=== PATIENT | male | born 1985 | race Caucasian/White ===

== ENCOUNTER 2017-08-05 14:23 | Emergency (ER) | payer OTHER, SELFPAY ==
--- NOTE | 2017-08-05 14:30 | DI.RAD.S_ITS ---
PROCEDURE: XR HAND LT MIN 3V INDICATIONS: cut off pinky with saw TECHNIQUE: 3 views of the hand(s) acquired. COMPARISON: None. FINDINGS: Bones: Partial traumatic amputation involving the distal phalanx of the 5th digit is evident. No definite involvement of the distal interphalangeal joint is evident. No radiopaque foreign bodies are evident at this site. There appears to be flattening involving the ulnar margin of the tuft of the distal phalanx of the 4th digit. No displaced fractures or dislocations are identified involving the osseous structures of the hand. No significant degenerative changes are appreciated. Soft tissues: No suspicious soft tissue calcifications. Soft tissue swelling and probable laceration is evident involving the distal phalanx of the 4th digit. No unexpected radiopaque foreign bodies are evident. There is also laceration involving the distal phalanx of the 5th digit. IMPRESSION: 1. Traumatic amputation involving the majority of the distal phalanx of the 5th digit. 2. Soft tissue injury/laceration involving the tip of the 4th digit with an associated injury involving the tuft of the distal phalanx of the 4th digit. 3. No radiopaque foreign bodies. Dictated by: Asaf Verduzco M.D. on 08/05/2017 at 13:41 Approved by: Asaf Verduzco M.D. on 08/05/2017 at 13:54
--- NOTE | 2017-08-05 14:33 | ED_ITS ---
HPI - Extremity Injury (Upper) General Chief Complaint: Wound/Laceration Stated Complaint: ACCIDENT,FINGER AMPUTATED Time Seen by Provider: 08/05/17 14:30 Source: patient Mode of arrival: ambulatory Limitations: no limitations History of Present Illness HPI narrative: Patient is a 32-year-old male who presents with a left PE amputation. He was working with a table saw when he cut the distal end of his finger off. He is brought the finger with them in a cup of water. Of he denies numbness or tingling. Tetanus is up-to-date of bleeding is controlled complaint: injury to: left Onset (ago): minute(s) (15) Related Data Previous Rx's Medication Instructions Recorded cephalexin 500 mg PO Q8H #21 tab 08/05/17 hydrocodone-acetaminophen [[place]] 1 tab PO Q6H PRN #14 tab 08/05/17 Review of Systems Review of Systems GENERAL: Denies chills,fever HEENT: Denies throat pain RESPIRATORY: Denies dyspnea, cough, wheezing CARDIOVASCULAR: Denies chest pain, palpitations GASTROINTESTINAL: Denies nausea, vomiting MUSCULOSKELETAL: As per HPI SKIN: See HPI NEUROLOGIC: Denies weakness, dizziness, headache, numbness 8 point review of systems is negative except for those stated above and HPI All systems reviewed & are unremarkable except as noted in HPI and below [facility] Surgical History Status post hernia repair Exam Initial Vital Signs Initial Vital Signs: Vital Signs Temperature 97.9 F 08/05/17 14:37 Pulse Rate 110 H 08/05/17 14:37 Respiratory Rate 19 08/05/17 14:37 Blood Pressure 188/107 H 08/05/17 14:37 Pulse Oximetry 99 08/05/17 14:37 GENERAL: Well-appearing, well-nourished and in no acute distress. CARDIOVASCULAR: peripheral pulses in tact, cap refill <2 sec RESPIRATORY: No respiratory distress, speaks in full sentences without difficulty EXTREMITIES: Peripheral pulses intact left hand sensation of radial median and ulnar nerve intact. A flexion extension abduction and abduction present and all fingers. Obvious missing distal portion of left 5th finger. NEUROLOGICAL: Cranial nerves II through XII grossly intact. Normal gait and speech. SKIN: Warm, dry, no petechiae, no rashes or lesions. Extrem Hand L/R Back: 2 1. amputated 2. laceration with nail bed involvement. Course Orders Ordered: Discontinued Medications Cefazolin Sodium/Dextrose (Ancef) 2 gm in 100 mls @ 200 mls/hr IV NOW ONE Stop: 08/05/17 15:00 Last Infusion: 08/05/17 15:10 Dose: 0 mls/hr Admin: 08/05/17 14:36 Dose: 200 mls/hr Morphine Sulfate (Morphine Sulfate) 4 mg IV NOW ONE Stop: 08/05/17 14:32 Last Admin: 08/05/17 14:37 Dose: Morphine Sulfate (Morphine) 4 mg IV NOW ONE Stop: 08/05/17 14:38 Last Admin: 08/05/17 14:38 Dose: 4 mg Reevaluation(s) Reevaluation #1: Dr. Caban has been consulted and is at bedside for repair. Vital Signs - 8 hr 08/05/17 14:37 08/05/17 15:13 Temperature 97.9 F Pulse Rate 110 H Respiratory Rate 19 Blood Pressure 188/107 H Blood Pressure [Left Arm] 150/99 H Pulse Oximetry 99 MDM - Extremity Injury (Upper) Imaging Data hand x ray left: Radiologist's impression: PROCEDURE: XR HAND LT MIN 3V INDICATIONS: cut off pinky with saw TECHNIQUE: 3 views of the hand(s) acquired. COMPARISON: None. FINDINGS: Bones: Partial traumatic amputation involving the distal phalanx of the 5th digit is evident. No definite involvement of the distal interphalangeal joint is evident. No radiopaque foreign bodies are evident at this site. There appears to be flattening involving the ulnar margin of the tuft of the distal phalanx of the 4th digit. No displaced fractures or dislocations are identified involving the osseous structures of the hand. No significant degenerative changes are appreciated. Soft tissues: No suspicious soft tissue calcifications. Soft tissue swelling and probable laceration is evident involving the distal phalanx of the 4th digit. No unexpected radiopaque foreign bodies are evident. There is also laceration involving the distal phalanx of the 5th digit. IMPRESSION: 1. Traumatic amputation involving the majority of the distal phalanx of the 5th digit. 2. Soft tissue injury/laceration involving the tip of the 4th digit with an associated injury involving the tuft of the distal phalanx of the 4th digit. 3. No radiopaque foreign bodies. Dictated by: Asaf Verduzco M.D. on 08/05/2017 at 13:41 Discharge Plan Departure Patient Disposition: Home, Self-Care Clinical Impression: Amputation of finger of left hand Discharge Date/Time: 08/05/17 17:21 Interventions: ED Discharge Assessment Last Done: 08/05/17 17:16 Instructions: DI for Traumatic Amputation Activity Restrictions/Additional Instructions: *You have been diagnosed with distal left 5th finger amputation *What to do: Follow Orthopedics instructions. *Continue to take medications as directed Keflex 500 mg 3 times a day *Follow up with your primary care provider in 2-3 days, follow up with Dr. Dietz in clinic next week *Return to ER if you should have increasing pain, redness or any new, worsening or concerning symptoms Prescriptions: New cephalexin 500 mg tablet 500 mg PO Q8H Qty: 21 RF: 0 hydrocodone-acetaminophen [[place]] 5-325 mg tablet 1 tab PO Q6H PRN (Reason: pain) Qty: 14 RF: 0 Referrals: Jewels Caban MD [Physician] - Lin Nathan ARNP [Primary Care Provider] -
[2017-08-05] MEDS: CEFAZOLIN 2 GM/100 ML FROZ.PIGGY IV (14:36)
[2017-08-05 14:37] VITALS: BP 188/107; PULSE 110; RESP 19; TEMP 36.6; O2SAT 99
[2017-08-05] MEDS: MORPHINE 4 MG/ML INJ IV (14:38)
--- NOTE | 2017-08-05 14:40 | PC.NURSE ---
Pts finger wrapped in saline soaked gauze,finger tip removed from water and placed in normal saline
[2017-08-05 15:13] VITALS: BP 150/99
--- NOTE | 2017-08-05 17:12 | PC.NURSE ---
Assisted orthopedic surgeon with procedure. Pt awake for procedure. Alert and oriented. Reports pain tolerable during process. Ensured patients vitals stayed stable.
[2017-08-05 17:16] VITALS: BP 141/97; PULSE 85; RESP 15; O2SAT 98
--- NOTE | 2017-08-05 17:34 | P.CONS_ITS ---
History of Present Illness Date Patient Seen: 08/05/17 Time Patient Seen: 17:10 Chief complaint: ACCIDENT,FINGER AMPUTATED Reason for consult: Saw injury at work: Traumatic partial amputation sf,rf. 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 He was at work today when he was using a saw and had an injury to his left small finger and ring finger. He had a traumatic partial amputation of the distal phalanx of the small finger. He brought the amputated tissue with him today in cold water. The ring finger injury was mostly a oblique laceration. He last ate at 12:30 p.m. he does not smoke but occasionally chews tobacco. He does not take any medications or have any allergies to medications. He has no other medical problems. This is an L and I injury. Location: Left small finger, left ring finger Quality: Throbbing, bleeding, pain, ache Severity: Moderate Duration: Several hours Time: Constant Context: Table saw injury, acute onset Factors that make it better or worse: Pain medication helps, ice PFSH Surgical History Status post hernia repair Comment: Does not smoke. Occasionally chews tobacco Denies other medical problems or medications Meds Home Medications Medication Instructions Recorded Confirmed Type cephalexin 500 mg PO Q8H #21 tab 08/05/17 Rx hydrocodone-acetaminophen [[place]] 1 tab PO Q6H PRN #14 tab 08/05/17 Rx Review of Systems Review of Systems All systems reviewed & are unremarkable except as noted in HPI and below Exam Vital Signs (past 8 hours): Vital Signs - 8 hr 3 08/05/17 14:37 08/05/17 15:13 Temperature 97.9 F Pulse Rate 110 H Respiratory Rate 19 Blood Pressure 188/107 H Blood Pressure [Left Arm] 150/99 H Pulse Oximetry 99 Pulse Oximetry 99 Oxygen Delivery Method Room Air Narrative Exam Narrative: Patient is a 32-year-old male who is alert and oriented in no acute distress. His breathing is unlabored on room air. His vital signs are stable. He is seated in the emergency room. HEENT: Normocephalic atraumatic Breathing unlabored on Heart rate rhythm regular Right upper extremity atraumatic: Sensation intact to light touch. Palpable radial pulse full finger extension and flexion. Normal strength all muscle groups Left upper extremity: Left small finger with traumatic oblique amputation at the level of the distal interphalangeal joint with a small amount of distal phalanx remaining in an oblique pattern. There is exposed bone. Mild bleeding. Skin is pink and viable. The amputated part is also examined. This is floating and water and is quite tissue, nail and a small amount of bone. Left upper extremity radial pulse is palpated and normal. All other fingertips are pink with brisk capillary refill. The ring finger has a soft tissue laceration oblique fashion across distal tuft which has encompassed a small section of the nail. There is tissue loss to the level of the tuft no exposed bone. The avulsed tissue is still connected by a very thin and small skin bridge. The avulsed tissue is severely traumatized and nonviable. Patient is able to demonstrate active PIP and DIP flexion of the thumb index middle and ring fingers. The small finger distal tendon attachments are absent and there is no active motion of this joint. Bilateral lower extremity examination: Grossly intact with both feet up and down moves legs without difficulty. Objective Imaging Hand x-ray: My impression: Partial amputation left small finger with an oblique ulnar to radial angulated traumatic amputation just distal to DIP joint. Left ring finger with soft tissue deficit oblique ulnar to radial the level of the distal tuft. No other fractures or dislocations noted Radiologist's impression: 1. Traumatic amputation valve in the majority of the distal phalanx of the 5th digit. 2. Soft tissue injury/laceration involving the tip of the 4th digit with an associated injury involving the tuft of the distal phalanx of the 4th digit. 3. No radiopaque foreign bodies. Assessment & Plan Plan: Assessment/Plan Narrative: Assessment: 1. Left small finger traumatic amputation involving the majority of the distal phalanx including the distal extensor and flexor tendon insertions. 2. Left ring finger traumatic amputation of all thing soft tissue distal phalanx Plan: The injury and images were reviewed with the patient. He has a traumatic amputation at the level of the distal phalanx with violation of the distal tendon attachments. I discussed with the patient he has very little bone of the distal phalanx remaining in that the treatment of choice would be a revision amputation. We discussed removing the remainder of the distal phalanx back to the DIP joint and contouring the condyles for skeletal shortening to allow skin coverage. The patient understands and agrees with the plan. Additionally we discussed removing the nonviable tissue avulsion from the ring finger. Because this did not have any prominent exposed bone we discussed healing by secondary intention. The patient expressed understanding and agreement with the plan. The risks and benefits of the procedure were discussed in detail including, infection, wound healing problems, persistent pain, cold sensitive, nerve damage and bleeding, and possible need for additional procedures. Patient understands and agrees with the plan of formal procedural consent was signed. The patient had received intravenous antibiotics in the emergency department. He was also given IV pain medication. Procedure: Revision amputation left small finger and ring finger : CPT code 85636-E9, [id number] Diagnosis: Left small finger complete traumatic amputation ICD 10 S68.617A Left ring finger partial traumatic amputation ICD 10 S68.629A After informed consent was obtained the patient's left hand was cleaned off with alcohol and a mixture of 1% lidocaine and 0.5% Marcaine without epinephrine were used for digital block of the small finger and ring finger with the standard dorsal interdigital approach. This provided satisfactory anesthesia. The left hand was then prepped sterilely with Betadine. And the finger of a glove was cut and tubularized to create a tourniquet for the small finger. This was placed. The wound was explored. There was a very small amount of distal phalanx remaining and at the ulnar aspect of the incision this was at the level of the DIP joint. Remainder of the distal phalanx was disarticulated. And traumatic skin edges were revised. Rongeur was used to contour the condyles of the middle phalanx to prevent prominence. The amputation was then irrigated again. Digital nerves and tendon remnants were cut under tension and allowed to proximally retract. The wound was irrigated and the tourniquet removed. Hemostasis was achieved and the wound was closed with a few 5 0 chromic sutures deep and 5 0 nylon loosely in the skin. Attention was then turned to the ring finger no tourniquet was used on the ring finger. The distal partially avulsed tissue was excised. The wound was thoroughly irrigated and explored there was no bone exposed and it was felt that this would granulate in well. Silver nitrate stick was used in a few places for hemostasis. After the wound was irrigated petroleum gauze dressing were applied followed by gauze Kerlix and a Coban wrap. All digits were warm and well perfused with brisk capillary refill at the end of the procedure. Patient tolerated the procedure well. He will be discharged on Keflex and pain medication. Follow up in clinic within 5 days for removal of bandages and wound check. Patient understands and agrees with the plan. Time Spent With Patient Time with patient: Greater than 35 minutes
--- NOTE | 2017-08-05 17:37 | P.PCN_ITS ---
Procedures Date/Time Date of procedure: 08/05/17 Time of procedure: 14:34 General Procedure description: Diagnosis. 1. Left small finger complete traumatic amputation ICD 10: S68.617A 2. Left ring finger partial traumatic amputation ICD 10: S68.629A Procedure: Revision amputation left small finger and ring finger Cpt 10751-A8, [id number]-E4 After informed consent was obtained the patient's left hand was cleaned off with alcohol and a mixture of 1% lidocaine and 0.5% Marcaine without epinephrine were used for digital block of the small finger and ring finger with the standard dorsal interdigital approach. This provided satisfactory anesthesia. The left hand was then prepped sterilely with Betadine. And the finger of a glove was cut and tubularized to create a tourniquet for the small finger. This was placed. The wound was explored. There was a very small amount of distal phalanx remaining and at the ulnar aspect of the incision this was at the level of the DIP joint. Remainder of the distal phalanx was disarticulated. And traumatic skin edges were revised. Rongeur was used to contour the condyles of the middle phalanx to prevent prominence. The amputation was then irrigated again. Digital nerves and tendon remnants were cut under tension and allowed to proximally retract. The wound was irrigated and the tourniquet removed. Hemostasis was achieved and the wound was closed with a few 5 0 chromic sutures deep and 5 0 nylon loosely in the skin. Attention was then turned to the ring finger no tourniquet was used on the ring finger. The distal partially avulsed tissue was excised. The wound was thoroughly irrigated and explored there was no bone exposed and it was felt that this would granulate in well. Silver nitrate stick was used in a few places for hemostasis. After the wound was irrigated petroleum gauze dressing were applied followed by gauze Kerlix and a Coban wrap. All digits were warm and well perfused with brisk capillary refill at the end of the procedure. Patient tolerated the procedure well. He will be discharged on Keflex and pain medication. Follow up in clinic within 5 days for removal of bandages and wound check. Patient understands and agrees with the plan. Complications: none
== END 2017-08-05 17:21 | disposition home or self-care (01) ==
PROVIDERS: Emergency Provider Emergency Medicine; PCP Internal Medicine
DX: S68.12 Partial traumatic metacarpophalangeal amputation of other and unspecified finger (principal); W31.2XXA Contact with powered woodworking and forming machines, initial encounter
CPT/HCPCS: 73130; 96365; 96375; 99283; 99284; 99291; G0390; J0690; J2270